=== PATIENT | male | born 1965 | race Caucasian/White ===

== ENCOUNTER → 2017-07-18 | Outpatient (REF) ==
[~2017-07-18] MED LIST: FLAXSEED OIL1300 MG PO; FLEXERIL10 MG PO; LIPITOR20 MG PO; PERCOCET 325 MG1 TA2 PO; PROTONIX 40MG T40 MG PO; SINGULAIR 110 MG/TAB PO; ZYRTEC 10MG10 MG PO
== END ==
LOC: WSOH 13:26
DX: Z00.00 Encounter for general adult medical examination without abnormal findings (principal)

== ENCOUNTER 2020-12-19 16:35 | Observation (INO) | payer BC ==
[2020-12-19] VITALS (7 sets, daily range): BP systolic 120–139; BP diastolic 67–84; PULSE 63–86; TEMP 98.6–99
[2020-12-19] MEDS ORDERED: ADIPEX-P37.5 MG PO (17:27)
[2020-12-19] MEDS ORDERED: LEXAPRO 10MG10 MG PO (17:28)
[2020-12-19] MEDS ORDERED: WELLBUTRIN XL300 M1 PO (17:28)
--- NOTE | 2020-12-19 17:33 | NUR ---
Patient direct admit to 330. See initial assessment. NPO since [address] Summers notified of patient arrival.
--- NOTE | 2020-12-19 19:10 | NUR ---
Pt. to OR with PAT Gutiérrez
[2020-12-19] MEDS ORDERED: MOTRIN 600600 MG/TAB PO (20:05)
[2020-12-19] MEDS ORDERED: NORCO 325 MG-51 TAB PO (20:05)
[2020-12-19] MEDS ORDERED: AMOXICILLIN 8751 TAB PO (21:38)
--- NOTE | 2020-12-19 22:20 | NUR ---
Pt. arrived back to the floor from PACU. Pt. is A&OX3, assessment complete. IV to lt. hand patent, IV fluids infusing per orders. Abd. lap sites x 3 well approximated. Pt. reports pain at a 7 on pain scale but falls back to sleep. Vitals stable.
[2020-12-20 00:15] VITALS: BP 130/79; PULSE 73
[2020-12-20 04:20] VITALS: BP 121/68; PULSE 67; TEMP 97.6
[2020-12-20 07:19] VITALS: BP 111/56; PULSE 78; TEMP 97.2
--- NOTE | 2020-12-20 10:12 | NUR ---
Initial visit; Patient thanked Associate Web Developer for looking in on him and offering God's blessings.
[2020-12-20 11:23] VITALS: BP 114/68; PULSE 65; TEMP 98.2
--- NOTE | 2020-12-20 11:33 | NUR ---
Patient alert and oriented, answers questions appropriately. Abdomen soft, non tender, non distended. Bowel sounds active x4 quads. Lap sites to abdomen with edges well approximated, no redness or drainage noted. +Flatus. No bowel movement. Post op exercises reveiwed with patient. No c/o at this time.
--- NOTE | 2020-12-20 14:17 | NUR ---
Discharge instructions reviewed with patient, verbalized understanding. Discharged via wheelchair to auto/home with family at 1345.
== END 2020-12-20 13:45 | disposition home or self-care (01) ==
LOC: SDCO 16:35 → JCC 17:02 → SDCO 12-20 13:45 → JCC 12-20 13:45
PROVIDERS: ADMIT Surgery
DX: K35.80 Unspecified acute appendicitis (principal); G47.33 Obstructive sleep apnea (adult) (pediatric); E78.5 Hyperlipidemia, unspecified; E66.9 Obesity, unspecified; K21.9 Gastro-esophageal reflux disease without esophagitis; F41.9 Anxiety disorder, unspecified; F32.9 Major depressive disorder, single episode, unspecified; Z87.891 Personal history of nicotine dependence
CPT/HCPCS: OP; G0378; G0379; J0690; J1100; J2270; J2405; J2704; J3010; Q9967

== ENCOUNTER 2021-01-04 18:48 | Emergency (ER) | payer BC ==
[~2021-01-04] VITALS: Ht 175.3 cm; Wt 92.3 kg
[~2021-01-04 18:48] MED LIST changes: +ADIPEX-P37.5 MG PO; +AMOXICILLIN 8751 TAB PO; +LEXAPRO 10MG10 MG PO; +MOTRIN 600600 MG/TAB PO; +NORCO 325 MG-51 TAB PO; +WELLBUTRIN XL300 M1 PO
[2021-01-04 18:52] VITALS: TEMP 98.5
[2021-01-04 19:58] VITALS: BP 127/65; PULSE 85
== END 2021-01-04 20:00 | disposition home or self-care (01) ==
LOC: COL.ER 18:48
DX: S61.312A Laceration without foreign body of right middle finger with damage to nail, initial encounter (principal); K21.9 Gastro-esophageal reflux disease without esophagitis; F32.9 Major depressive disorder, single episode, unspecified; E78.5 Hyperlipidemia, unspecified; F17.200 Nicotine dependence, unspecified, uncomplicated; Z23 Encounter for immunization; Z90.89 Acquired absence of other organs; W26.8XXA Contact with other sharp object(s), not elsewhere classified, initial encounter; Y93.89 Activity, other specified

== ENCOUNTER → 2021-01-18 | Outpatient (CLI) | payer BC ==
[2021-01-18 13:58] VITALS: BP 114/72; PULSE 86
== END ==
LOC: COL.ER 13:47
DX: Z48.00 Encounter for change or removal of nonsurgical wound dressing (principal)

== ENCOUNTER 2022-06-18 13:02 | Emergency (ER) | payer BC ==
[~2022-06-18] VITALS: Ht 175.3 cm; Wt 109.1 kg
[2022-06-18 13:16] VITALS: TEMP 98.1
[2022-06-18] MEDS ORDERED: LAMICTAL 100MG100 MG PO (13:22)
[2022-06-18] MEDS ORDERED: PROZAC40 MG PO (13:22)
[2022-06-18 14:02] LABS: BASO % 0.8 % (0.0-2.0); EOS # 0.1 K/mm3 (0.0-0.7); EOS % 2.6 % (0.0-4.0); GRAN # 3.1 K/mm3 (1.4-6.5); GRAN % 62.1 % (42.2-75.2); HEMATOCRIT 40.1 % (42.0-52.0); HEMOGLOBIN 14.2 g/dl (13.5-18.0); LYMPH # 1.3 K/mm3 (1.2-3.4); MEAN CELL VOLUME 87 fl (80.0-100.0); MEAN CORPUSCULAR HEMOGLOBIN 31 pg (27-31); MEAN CORPUSCULAR HGB CONC 35 g/dl (33.0-37.0); MEAN PLATELET VOLUME 9.5 fl (7.4-10.4); MONO # 0.4 K/mm3 (0.1-0.6); MONO % 8.3 % (1.7-9.3); PLATELET COUNT 203 K/mm3 (130-400); RED BLOOD COUNT 4.59 M/mm3 (4.20-5.60); REDCELL DISTRIBUTION WIDTH-CV 14.3 % (11.5-14.5)
[2022-06-18 14:17] LABS: ALBUMIN 4.2 gm/dL (3.5-5.0); BILIRUBIN,TOTAL 0.7 mg/dL (0.2-1.2); C-REACTIVE PROTEIN 0.47 mg/dL (0.00-0.50); CALCIUM 8.9 mg/dL (8.4-10.2); CREATININE, serum 1.54 mg/dL (0.72-1.25); POTASSIUM 3.6 mmol/L (3.5-4.5); TOTAL PROTEIN 7.1 gm/dL (6.2-8.1)
[2022-06-18] MEDS ORDERED: NORCO 325 MG-51 TAB PO (14:58)
[2022-06-18] MEDS ORDERED: PREDNISONE20 MG PO (14:58)
[2022-06-18 15:30] VITALS: BP 137/97; PULSE 63
== END 2022-06-18 15:35 | disposition home or self-care (01) ==
LOC: COL.ER 13:02
PROVIDERS: Family Medicine
DX: M94.0 Chondrocostal junction syndrome [Tietze] (principal); R10.12 Left upper quadrant pain; Z90.49 Acquired absence of other specified parts of digestive tract; Z87.19 Personal history of other diseases of the digestive system; Z87.891 Personal history of nicotine dependence
CPT/HCPCS: J1885